=== PATIENT | female | born 1990 | race Two or more races ===

== ENCOUNTER 2023-08-26 17:14 | Emergency (ER) | payer SELFPAY ==
[~2023-08-26] VITALS: Ht 167.6 cm; Wt 122.7 kg
[2023-08-26 18:07] LABS: Basophils # (auto) 0 10 ^3/uL (0-0.2); Basophils % (auto) 0.6 % (0.0-2.0); Eosinophils # (auto) 0.1 10 ^3/uL (0-0.8); Eosinophils % (auto) 1.6 % (0.0-7.0); Hematocrit 40.4 % (36.0-46.0); Hemoglobin 13.6 g/dL (12.2-16.2); Lymphocytes # (auto) 1.7 10 ^3/uL (0.4-5.4); Lymphocytes % (auto) 27.8 % (10.0-50.0); Mean Corpuscular Hemoglobin 28.3 pg (28.0-32.0); Mean Corpuscular Hgb Conc. 33.6 g/dL (32.0-36.0); Mean Corpuscular Volume 84.2 fL (80.0-100.0); Monocytes # (auto) 0.2 10 ^3/uL (0-1.3); Nucleated Red Blood Cells % 0.1 %; Red Cell Distribution Width 12.6 % (11.8-14.3)
[2023-08-26 21:08] LABS: Urine Bacteria None Seen /hpf (None Seen)
[2023-08-26 21:23] LABS: Urine Blood TRACE /uL (Negative); Urine Clarity Clear (Clear); Urine Color Yellow (Yellow); Urine Mucus FEW (None Seen); Urine Protein, UAD TRACE (Negative); Urine Specific Gravity 1.029 (1.001-1.035); Urine Urobilinogen 2 mg/dL (Negative); Urine WBC 1 /hpf (0 - 5)
[2023-08-26] MEDS ORDERED: HYDR-4902 PO (23:01)
[2023-08-26] MEDS ORDERED: ZOFR4T PO (23:01)
[2023-08-26 23:11] VITALS: BP 121/71; TEMP 97.8
[2023-08-26 23:14] VITALS: PULSE 61; RESP 20; O2SAT 97
== END 2023-08-26 23:19 | disposition home or self-care (01) ==
LOC: ER 17:14
DX: N83.201 Unspecified ovarian cyst, right side (principal); R10.2 Pelvic and perineal pain
CPT/HCPCS: 36415; 76856; 81001; 83690; 84702; 85025